=== PATIENT | male | born 1965 | race Two or more races ===

== ENCOUNTER 2018-03-18 04:23 | Emergency (ER) | payer SELFPAY ==
[~2018-03-18] VITALS: Ht 177.8 cm; Wt 88.5 kg
[~2018-03-18 04:23] MED LIST: CYCL1TAB18 PO; ESOM20CA PO; IBUP800T24 PO
[2018-03-18] MEDS ORDERED: MORPHINE SULF INJ 2 MG/ML SYRINGE 1ML IV ONE (06:00)
[2018-03-18 06:06] LABS: Basophils # (auto) 0 uL; Basophils % (auto) 0.4 % (0.0-2.0); Eosinophils # (auto) 0 uL; Eosinophils % (auto) 0.2 % (0.0-7.0); Hematocrit 48.9 % (41.0-53.0); Hemoglobin 16.6 g/dL (13.5-17.5); Lymphocytes # (auto) 2.4 uL; Lymphocytes % (auto) 33.6 % (10.0-50.0); Mean Corpuscular Hemoglobin 30.7 pg (28.0-32.0); Mean Corpuscular Hgb Conc. 33.9 g/dL (32.0-36.0); Mean Corpuscular Volume 90.5 fL (80.0-100.0); Monocytes # (auto) 0.8 uL; Monocytes % (auto) 10.7 % (0.0-12.0); Neutrophils # (auto) 3.9 uL; Neutrophils % (auto) 55.1 % (37.0-80.0); Nucleated Red Blood Cells % 0.1 %; Platelet Count (auto) 169 10^3/uL (140-450); Red Cell Distribution Width 14.4 % (11.8-14.3); White Blood Cell 7.1 10^3/uL (4.4-10.8)
[2018-03-18 06:22] LABS: Calcium 8.3 mg/dL (8.5-10.1); Chloride 107 mmol/L (98-107); Potassium 3.9 mmol/L (3.5-5.1); Sodium 138 mmol/L (136-145)
[2018-03-18 06:25] LABS: Alanine Aminotransferase 39 U/L (16-61); Albumin 3.6 g/dL (3.4-5.0); Anion Gap 7 (5-15); Aspartate Aminotransferase 16 U/L (15-37); BUN/Creatinine Ratio 20.5; Blood Urea Nitrogen 23 mg/dL (7-18); Carbon Dioxide 24 mmol/L (21-32); GFR African American 89 mL/min; GFR Non-African American 73 mL/min; Glucose 115 mg/dL (74-106); Magnesium 2.1 mg/dL (1.6-2.6)
[2018-03-18 06:30] LABS: Alkaline Phosphatase 66 U/L (45-117); Bilirubin, Total 0.4 mg/dL (0.2-1.0); Total Protein 6.8 g/dL (6.4-8.2)
[2018-03-18] MEDS ORDERED: IOHEXOL 300 MG/ML 100ML BOTTLE IJ ONE (06:48)
[2018-03-18] MEDS ORDERED: SODIUM CHLORIDE 0.9% 1,000 ML IV ONE (06:55)
[2018-03-18] MEDS ORDERED: ONDANSETRON HCL 4 MG/2 ML VIAL IV ONE (07:00)
[2018-03-18] MEDS ORDERED: KETOROLAC TROMETH 30 MG/ML 1ML VIAL IV ONE (07:00)
[2018-03-18 10:18] VITALS: BP 111/67
[2018-03-18 10:19] LABS: Urine Bacteria NONE SEEN /hpf (None Seen); Urine Blood Negative /uL (Negative); Urine Specific Gravity 1.032 (1.001-1.035); Urine WBC 1 /hpf (0 - 3)
== END 2018-03-18 12:24 | disposition home or self-care (01) ==
LOC: EDBD 04:23 → ER 04:31
DX: R07.89 Other chest pain (principal); K44.9 Diaphragmatic hernia without obstruction or gangrene; E03.9 Hypothyroidism, unspecified; Z90.89 Acquired absence of other organs
CPT/HCPCS: 36415; 71260; 80053; 81001; 83735; 84443; 84484; 85025; 85652; 93005; 96374; 96375; 99285; J1885; J2405; Q9967

== ENCOUNTER 2023-03-02 08:41 | Inpatient (IN) | payer MEDICAID ==
[2023-02-28 13:37] LABS: Basophils # (auto) 0 10 ^3/uL (0-0.2); Eosinophils # (auto) 0 10 ^3/uL (0-0.8); Eosinophils % (auto) 0.5 % (0.0-7.0); Hematocrit 44.1 % (41.0-53.0); Hemoglobin 14.9 g/dL (13.5-17.5); Lymphocytes # (auto) 1.8 10 ^3/uL (0.4-5.4); Lymphocytes % (auto) 35.7 % (10.0-50.0); Mean Corpuscular Hemoglobin 28.8 pg (28.0-32.0); Mean Corpuscular Hgb Conc. 33.9 g/dL (32.0-36.0); Mean Corpuscular Volume 84.9 fL (80.0-100.0); Monocytes # (auto) 0.7 10 ^3/uL (0-1.3); Monocytes % (auto) 14.7 % (0.0-12.0); Neutrophils # (auto) 2.4 10 ^3/uL (1.6-8.6); Neutrophils % (auto) 48.1 % (37.0-80.0); Nucleated Red Blood Cells % 0.1 %; Red Blood Cells 5.19 10^6/uL (4.5-5.90); Red Cell Distribution Width 16.1 % (11.8-14.3); White Blood Cell 4.9 10^3/uL (4.4-10.8)
[2023-02-28 13:45] LABS: INR 0.98 (0.9-1.15); Partial Thromboplastin Time 24.8 SEC (24.5-34.5); Prothrombin Time 10.3 sec (9.3-11.8)
[2023-02-28 13:56] LABS: Urine Bacteria NONE SEEN /hpf (None Seen); Urine Blood Negative /uL (Negative); Urine Clarity Clear (Clear); Urine Color Yellow (Yellow); Urine Mucus FEW (None Seen); Urine Protein, UAD TRACE (Negative); Urine Specific Gravity 1.027 (1.001-1.035); Urine Urobilinogen Normal (Negative); Urine WBC 1 /hpf (0 - 3); Urine pH 5.5 (5.0-8.0)
[2023-02-28 14:22] LABS: Alanine Aminotransferase 71 U/L (7-40); Alkaline Phosphatase 84 U/L (46-116); Anion Gap 9.4 (5-15); Aspartate Aminotransferase 30 U/L (13-40); BUN/Creatinine Ratio 10.1 (10.0-20.0); Bilirubin, Total 0.5 mg/dL (0.2-1.0); Blood Urea Nitrogen 10 mg/dL (9-23); Calcium 8.9 mg/dL (8.5-10.1); Carbon Dioxide 20.6 mmol/L (20-30); Chloride 110 mmol/L (98-107); Glucose 130 mg/dL (74-106); Sodium 140 mmol/L (136-145); Total Protein 6.2 g/dL (5.7-8.2)
[~2023-03-02] VITALS: Ht 170.2 cm; Wt 91.3 kg
[~2023-03-02 08:41] MED LIST changes: -CYCL1TAB18 PO; -ESOM20CA PO; +IBUP-1456 PO; -IBUP800T24 PO; +ceFAZolin 1GM/50ML 100 ML IV ONE
[2023-03-02] MEDS ORDERED: LIDOCAINE W/ EPINEPHRINE 1% 20ML VIAL ONE (09:12)
[2023-03-02] MEDS ORDERED: BUPIVACAINE 0.25% INJ 50ML VIAL ONE (09:12)
[2023-03-02] MEDS ORDERED: HYDROmorphone HCL 2 MG/ML VL/or syr IV PRN ×3 (09:15→22:00)
[2023-03-02] MEDS ORDERED: METOCLOPRAMIDE HCL 5MG/ml INJ 2ml VIAL IV PRN (09:15)
[2023-03-02] MEDS ORDERED: ACCU-CHEK COMFORT CURVE STRIP VI ONE (09:15)
[2023-03-02] MEDS ORDERED: MORPHINE SULFATE INJ 2 MG/ml SYRG IV PRN (09:15)
[2023-03-02] MEDS ORDERED: MIDAZOLAM HCL 2MG/2ML 2ml VIAL (1mg/ml) ONE (10:55)
[2023-03-02] MEDS ORDERED: fentaNYL CITRATE 100 MCG/2 ML VL ONE (10:55)
[2023-03-02] MEDS ORDERED: DexAMETHasone SOD PHOS 10MG/1ML VIAL INJ ONE (10:55)
[2023-03-02] MEDS ORDERED: ROCURONIUM 10MG/ML 10ML VIAL IV ONE (10:55)
[2023-03-02] MEDS ORDERED: SODIUM CHLORIDE LOCK 10 ML ONE (10:55)
[2023-03-02] MEDS ORDERED: NEOSTIGMINE 1 MG/ML INJ (10mg/10ML VIAL) ONE (10:55)
[2023-03-02] MEDS ORDERED: MEPERIDINE HCL (25 MG/ML) 1ML VIAL ONE (10:55)
[2023-03-02] MEDS ORDERED: ONDANSETRON HCL 4 MG/2 ML VIAL ONE (10:56)
[2023-03-02] MEDS ORDERED: GLYCOPYRROLATE 0.2 MG/ML 1ML VIAL ONE (10:56)
[2023-03-02] MEDS ORDERED: SUGAMMADEX 200mg/2ml Vial (100MG/ML) IV ONE (11:27)
[2023-03-02 11:45] VITALS: O2SAT 100
[2023-03-02] MEDS ORDERED: ONDANSETRON HCL 4 MG/2 ML VIAL IV PRN ×2 (11:45→15:15)
[2023-03-02] MEDS ORDERED: HYDROmorphone HCL 2 MG/ML VL/or syr ONE (12:12)
[2023-03-02] MEDS ORDERED: MEPERIDINE HCL (50 MG/ML) 1 ML VIAL ONE (12:12)
[2023-03-02] MEDS: HYDROmorphone HCL 2 MG/ML VL/or syr IV PRN ×7 (12:14→23:36)
[2023-03-02] MEDS: D5W/SOD CHL 0.45%/KCL 20MEQ 1,000 ML IV SCH ×2 (12:48→20:05)
[2023-03-02] MEDS ORDERED: HYDROmorphone HCL 2 MG/ML VL/or syr IV ONE (13:15)
[2023-03-02] MEDS ORDERED: ONDANSETRON HCL 4 MG/2 ML VIAL IM ONE (13:15)
[2023-03-02] MEDS ORDERED: ceFAZolin 1GM/50ML 50 ML IV SCH ×2 (14:00→19:30)
[2023-03-02] MEDS ORDERED: DOCUSATE SOD 100 MG CAP PO PRN (15:15)
[2023-03-02] MEDS ORDERED: hydrALAZINE HCL 20 MG/ML VL IV PRN (15:30)
[2023-03-02 15:33] LABS: Base Excess -2.1 mmol/L (-2.0-2.0)
[2023-03-02 16:55] VITALS: BP 114/65; PULSE 75; RESP 18; TEMP 97.5; O2SAT 97
[2023-03-02] MEDS: SODIUM CHLORIDE 0.9% 1,000 ML IV SCH ×2 (17:18→23:35)
[2023-03-02 18:00] VITALS: O2SAT 97
[2023-03-02] MEDS ORDERED: ESOM20CA PO (18:23)
[2023-03-02] MEDS ORDERED: HYDR50CA2 PO (18:23)
[2023-03-02 19:24] LABS: Hematocrit 41.6 % (41.0-53.0); Hemoglobin 13.8 g/dL (13.5-17.5)
[2023-03-02] MEDS ORDERED: hydrOXYzine 25 MG TAB or CAP PO PRN (19:30)
[2023-03-02 20:00] VITALS: BP 133/75; PULSE 61; PULSE 67; PULSE 71; RESP 19; RESP 22; TEMP 97.9; O2SAT 96
[2023-03-02 22:00] VITALS: BP 133/75; PULSE 71; RESP 22; TEMP 97.9; O2SAT 96
[2023-03-02] MEDS ORDERED: ACETAMINOPHEN 325 MG TAB PO PRN (22:00)
[2023-03-03] VITALS (7 sets, daily range): BP systolic 106–177; BP diastolic 69–91; PULSE 59–83; RESP 17–20; TEMP 97.6–98.2; O2SAT 93–95
[2023-03-03] MEDS: HYDROmorphone HCL 2 MG/ML VL/or syr IV PRN ×5 (02:52→22:17)
[2023-03-03] MEDS: ceFAZolin 1GM/50ML 50 ML IV SCH ×3 (03:17→20:18)
[2023-03-03] MEDS: D5W/SOD CHL 0.45%/KCL 20MEQ 1,000 ML IV SCH ×4 (04:25→20:15)
[2023-03-03 06:53] LABS: Alanine Aminotransferase 66 U/L (7-40); Anion Gap 5.8 (5-15); BUN/Creatinine Ratio 4.5 (10.0-20.0); Blood Urea Nitrogen 5 mg/dL (9-23); Carbon Dioxide 25.2 mmol/L (20-30); Chloride 105 mmol/L (98-107); Glucose 81 mg/dL (74-106); Potassium 4.4 mmol/L (3.5-5.1); Sodium 136 mmol/L (136-145)
[2023-03-03 06:54] LABS: Aspartate Aminotransferase 34 U/L (13-40)
[2023-03-03 06:56] LABS: Total Protein 6.3 g/dL (5.7-8.2)
[2023-03-03 07:00] LABS: Alkaline Phosphatase 87 U/L (46-116)
[2023-03-03 07:20] LABS: Basophils # (auto) 0 10 ^3/uL (0-0.2); Basophils % (auto) 0.4 % (0.0-2.0); Eosinophils # (auto) 0 10 ^3/uL (0-0.8); Eosinophils % (auto) 0.2 % (0.0-7.0); Hematocrit 44.9 % (41.0-53.0); Hemoglobin 14.6 g/dL (13.5-17.5); Lymphocytes # (auto) 1.7 10 ^3/uL (0.4-5.4); Lymphocytes % (auto) 29.3 % (10.0-50.0); Mean Corpuscular Hemoglobin 28.1 pg (28.0-32.0); Mean Corpuscular Hgb Conc. 32.5 g/dL (32.0-36.0); Mean Corpuscular Volume 86.3 fL (80.0-100.0); Monocytes # (auto) 0.6 10 ^3/uL (0-1.3); Monocytes % (auto) 9.8 % (0.0-12.0); Neutrophils # (auto) 3.6 10 ^3/uL (1.6-8.6); Neutrophils % (auto) 60.3 % (37.0-80.0); Nucleated Red Blood Cells % 0.1 %; White Blood Cell 5.9 10^3/uL (4.4-10.8)
[2023-03-03] MEDS: SODIUM CHLORIDE 0.9% 1,000 ML IV SCH (07:55)
[2023-03-03] MEDS: PANTOPRAZOLE 40 MG/10 ML VIAL INJ IV SCH (09:14)
[2023-03-03] MEDS ORDERED: PANTOPRAZOLE 40 MG/10 ML VIAL INJ IV SCH ×2 (10:00)
[2023-03-04] MEDS: ceFAZolin 1GM/50ML 50 ML IV SCH ×3 (03:44→20:38)
[2023-03-04] MEDS: HYDROmorphone HCL 2 MG/ML VL/or syr IV PRN ×5 (04:04→22:01)
[2023-03-04 05:00] VITALS: BP 130/94; PULSE 66; RESP 18; TEMP 98.5; O2SAT 93
[2023-03-04] MEDS: D5W/SOD CHL 0.45%/KCL 20MEQ 1,000 ML IV SCH ×2 (06:15→16:15)
[2023-03-04 06:39] LABS: Chloride 104 mmol/L (98-107); Potassium 3.8 mmol/L (3.5-5.1); Sodium 137 mmol/L (136-145)
[2023-03-04 06:40] LABS: Anion Gap 7.4 (5-15); Calcium 9.3 mg/dL (8.5-10.1); Carbon Dioxide 25.6 mmol/L (20-30)
[2023-03-04 06:45] LABS: BUN/Creatinine Ratio 6.9 (10.0-20.0); Blood Urea Nitrogen 7 mg/dL (9-23); Glucose 83 mg/dL (74-106)
[2023-03-04 06:51] LABS: Basophils # (auto) 0 10 ^3/uL (0-0.2); Basophils % (auto) 0.4 % (0.0-2.0); Eosinophils # (auto) 0 10 ^3/uL (0-0.8); Eosinophils % (auto) 0.1 % (0.0-7.0); Hematocrit 45.3 % (41.0-53.0); Hemoglobin 15.2 g/dL (13.5-17.5); Lymphocytes # (auto) 1.8 10 ^3/uL (0.4-5.4); Lymphocytes % (auto) 38.3 % (10.0-50.0); Mean Corpuscular Hemoglobin 28.5 pg (28.0-32.0); Mean Corpuscular Hgb Conc. 33.6 g/dL (32.0-36.0); Mean Corpuscular Volume 84.9 fL (80.0-100.0); Monocytes # (auto) 0.5 10 ^3/uL (0-1.3); Neutrophils # (auto) 2.4 10 ^3/uL (1.6-8.6); Neutrophils % (auto) 51.2 % (37.0-80.0); Nucleated Red Blood Cells % 0.4 %; Red Blood Cells 5.33 10^6/uL (4.5-5.90); Red Cell Distribution Width 15.7 % (11.8-14.3); White Blood Cell 4.7 10^3/uL (4.4-10.8)
[2023-03-04 08:39] VITALS: BP 143/96; PULSE 59; RESP 19; TEMP 98.1; O2SAT 96
[2023-03-04] MEDS: PANTOPRAZOLE 40 MG/10 ML VIAL INJ IV SCH (10:59)
[2023-03-04 13:00] VITALS: BP 144/81; PULSE 61; RESP 19; TEMP 98.3; O2SAT 96
[2023-03-04 16:33] VITALS: BP 119/88; PULSE 60; RESP 18; TEMP 98.1; O2SAT 94
[2023-03-04 20:00] VITALS: O2SAT 96
[2023-03-04 22:00] VITALS: BP 131/90; PULSE 66; RESP 18; TEMP 97.7; O2SAT 95
[2023-03-05] MEDS: D5W/SOD CHL 0.45%/KCL 20MEQ 1,000 ML IV SCH ×3 (02:15→22:15)
[2023-03-05] MEDS: HYDROmorphone HCL 2 MG/ML VL/or syr IV PRN ×4 (02:29→18:35)
[2023-03-05] MEDS: ceFAZolin 1GM/50ML 50 ML IV SCH ×3 (04:35→20:05)
[2023-03-05 05:00] VITALS: BP 119/85; PULSE 67; RESP 16; TEMP 97.5; O2SAT 95
[2023-03-05] MEDS: PANTOPRAZOLE 40 MG/10 ML VIAL INJ IV SCH (08:01)
[2023-03-05 09:00] VITALS: BP 132/83; PULSE 67; RESP 20; TEMP 98.2; O2SAT 96
[2023-03-05 13:00] VITALS: BP 145/90; PULSE 79; RESP 22; TEMP 97.9; O2SAT 96
[2023-03-05] MEDS: HYDROcodone-ACET 5/325MG TAB PO PRN ×2 (14:05→21:59)
[2023-03-05 17:00] VITALS: BP 127/84; PULSE 67; RESP 18; TEMP 97.7; O2SAT 100
[2023-03-05 20:00] VITALS: O2SAT 96
[2023-03-06] MEDS: HYDROmorphone HCL 2 MG/ML VL/or syr IV PRN (01:05)
[2023-03-06] MEDS ORDERED: diphenhdrAMINE HCL 25 MG CAP PO PRN (03:45)
[2023-03-06] MEDS: ceFAZolin 1GM/50ML 50 ML IV SCH ×2 (04:03→13:11)
[2023-03-06 05:00] VITALS: BP 123/89; PULSE 63; RESP 18; TEMP 98.2; O2SAT 96
[2023-03-06] MEDS: HYDROcodone-ACET 5/325MG TAB PO PRN ×3 (05:21→18:27)
[2023-03-06] MEDS: D5W/SOD CHL 0.45%/KCL 20MEQ 1,000 ML IV SCH (08:15)
[2023-03-06 09:08] VITALS: BP 130/93; PULSE 69; RESP 22; TEMP 98; O2SAT 100
[2023-03-06] MEDS: PANTOPRAZOLE 40 MG/10 ML VIAL INJ IV SCH (09:28)
[2023-03-06 13:00] VITALS: BP 134/89; PULSE 67; RESP 18; TEMP 97.6; O2SAT 98
[2023-03-06] MEDS ORDERED: LACTULOSE 20Gm/30ML SOLN PO ONE (15:00)
[2023-03-06 17:00] VITALS: BP 141/92; PULSE 65; RESP 16; TEMP 97.3; O2SAT 96
[2023-03-06 20:00] VITALS: O2SAT 97
[2023-03-06 22:00] VITALS: BP 121/79; PULSE 60; RESP 20; TEMP 97.8; O2SAT 93
[2023-03-07] MEDS: HYDROcodone-ACET 5/325MG TAB PO PRN ×2 (00:42→06:42)
[2023-03-07 05:00] VITALS: BP 114/82; PULSE 56; RESP 18; TEMP 97.8; O2SAT 98
[2023-03-07 06:16] LABS: Basophils # (auto) 0 10 ^3/uL (0-0.2); Basophils % (auto) 0.5 % (0.0-2.0); Eosinophils # (auto) 0 10 ^3/uL (0-0.8); Eosinophils % (auto) 0.2 % (0.0-7.0); Hematocrit 48.8 % (41.0-53.0); Hemoglobin 16.5 g/dL (13.5-17.5); Lymphocytes # (auto) 1.9 10 ^3/uL (0.4-5.4); Lymphocytes % (auto) 34.3 % (10.0-50.0); Mean Corpuscular Hemoglobin 28.4 pg (28.0-32.0); Mean Corpuscular Hgb Conc. 33.8 g/dL (32.0-36.0); Mean Corpuscular Volume 84.1 fL (80.0-100.0); Monocytes # (auto) 0.6 10 ^3/uL (0-1.3); Monocytes % (auto) 10.1 % (0.0-12.0); Neutrophils # (auto) 3.1 10 ^3/uL (1.6-8.6); Neutrophils % (auto) 54.9 % (37.0-80.0); Nucleated Red Blood Cells % 0.5 %; Red Cell Distribution Width 15.4 % (11.8-14.3); White Blood Cell 5.6 10^3/uL (4.4-10.8)
[2023-03-07 06:30] LABS: Alanine Aminotransferase 44 U/L (7-40); Alkaline Phosphatase 91 U/L (46-116); Calcium 9.4 mg/dL (8.7-10.4); Carbon Dioxide 26.8 mmol/L (20-30); Chloride 104 mmol/L (98-107)
[2023-03-07 06:31] LABS: Anion Gap 7.2 (5-15); BUN/Creatinine Ratio 8.7 (10.0-20.0); Blood Urea Nitrogen 9 mg/dL (9-23); Glucose 76 mg/dL (74-106); Potassium 4.3 mmol/L (3.5-5.1); Sodium 138 mmol/L (136-145)
[2023-03-07 06:32] LABS: Albumin 4.5 g/dL (3.2-4.8); Aspartate Aminotransferase 30 U/L (13-40); Bilirubin, Total 0.6 mg/dL (0.2-1.0); Total Protein 7.1 g/dL (5.7-8.2)
[2023-03-07 09:00] VITALS: BP 125/85; PULSE 62; RESP 16; TEMP 98.2; O2SAT 98
[2023-03-07 13:00] VITALS: BP 158/79; PULSE 83; RESP 20; TEMP 97.5; O2SAT 99
== END 2023-03-07 14:05 | disposition home or self-care (01) | DRG 228 ==
LOC: SUR 08:41 → TELE 15:18 → TELE-EAST 16:44 → EAST 03-03 18:33
PROVIDERS: ADMIT Nurse Practitioner Family; ATTEND Internal Medicine
PROC: 0WQF0ZZ Repair Abdominal Wall, Open Approach (ICD-10-PCS; principal; 2023-03-02 10:57)
DX: K42.9 Umbilical hernia without obstruction or gangrene (principal); I69.354 Hemiplegia and hemiparesis following cerebral infarction affecting left non-dominant side; F41.9 Anxiety disorder, unspecified; I10 Essential (primary) hypertension; R06.03 Acute respiratory distress; R09.02 Hypoxemia; K21.9 Gastro-esophageal reflux disease without esophagitis; G40.909 Epilepsy, unspecified, not intractable, without status epilepticus; E66.9 Obesity, unspecified; Z86.61 Personal history of infections of the central nervous system; Z68.31 Body mass index [BMI] 31.0-31.9, adult
CPT/HCPCS: 36415; 36600; 71045; 80048; 80053; 81001; 82805; 85014; 85018; 85025; 85610; 85730; 86850; 86900; 86901; 88302; 97110; 97116; 97163; 97530; C9113; G0378; J0690; J1100; J2250; J2405; J3490

== ENCOUNTER 2023-04-11 12:53 | Emergency (ER) | payer MEDICAID ==
[~2023-04-11] VITALS: Ht 170.2 cm; Wt 85.9 kg
[~2023-04-11 12:53] MED LIST changes: +ESOM20CA PO; +HYDR50CA2 PO; -IBUP-1456 PO; -ceFAZolin 1GM/50ML 100 ML IV ONE
[2023-04-11 13:49] LABS: Urine WBC None Seen /hpf (0 - 3)
[2023-04-11 14:06] LABS: Urine Bacteria NONE SEEN /hpf (None Seen); Urine Blood Negative /uL (Negative); Urine Clarity Clear (Clear); Urine Color Yellow (Yellow); Urine Protein, UAD Negative (Negative); Urine Specific Gravity 1.019 (1.001-1.035); Urine Urobilinogen Normal (Negative)
[2023-04-11 15:00] LABS: Basophils # (auto) 0 10 ^3/uL (0-0.2); Basophils % (auto) 0.3 % (0.0-2.0); Eosinophils # (auto) 0 10 ^3/uL (0-0.8); Hematocrit 45.6 % (41.0-53.0); Hemoglobin 15.5 g/dL (13.5-17.5); Lymphocytes # (auto) 1.8 10 ^3/uL (0.4-5.4); Lymphocytes % (auto) 34.7 % (10.0-50.0); Mean Corpuscular Hemoglobin 28.3 pg (28.0-32.0); Mean Corpuscular Hgb Conc. 34.1 g/dL (32.0-36.0); Mean Corpuscular Volume 83.1 fL (80.0-100.0); Monocytes # (auto) 0.6 10 ^3/uL (0-1.3); Neutrophils # (auto) 2.8 10 ^3/uL (1.6-8.6); Nucleated Red Blood Cells % 0.3 %; Red Blood Cells 5.49 10^6/uL (4.5-5.90); Red Cell Distribution Width 14.6 % (11.8-14.3); White Blood Cell 5.2 10^3/uL (4.4-10.8)
[2023-04-11] MEDS ORDERED: SODIUM CHLORIDE 0.9% 1,000 ML IVB ONE (15:00)
[2023-04-11] MEDS ORDERED: KETOROLAC TROMETH 30 MG/ML 1ML VIAL IV ONE (15:00)
[2023-04-11 15:16] LABS: Alanine Aminotransferase 88 U/L (7-40); Albumin 4.5 g/dL (3.2-4.8); Alkaline Phosphatase 84 U/L (46-116); Anion Gap 9 (5-15); Aspartate Aminotransferase 46 U/L (13-40); Bilirubin, Total 0.7 mg/dL (0.2-1.0); Blood Urea Nitrogen 15 mg/dL (9-23); Calcium 9.5 mg/dL (8.5-10.1); Carbon Dioxide 23 mmol/L (20-30); Chloride 106 mmol/L (98-107); Glucose 90 mg/dL (74-106); Potassium 4.2 mmol/L (3.5-5.1); Sodium 138 mmol/L (136-145); Total Protein 6.9 g/dL (5.7-8.2)
[2023-04-11] MEDS ORDERED: KETOROLAC TROMETH 60MG/2ML VIAL ONE (16:10)
[2023-04-11] MEDS ORDERED: TRAM50TA2 PO (16:17)
[2023-04-11] MEDS ORDERED: MORPHINE SULFATE 4 MG/ML SYR/VIAL IV ONE (16:30)
[2023-04-11] MEDS ORDERED: ONDANSETRON HCL 4 MG/2 ML VIAL IV ONE (16:30)
[2023-04-11 18:25] VITALS: BP 133/98; PULSE 72; RESP 18; TEMP 98.7; O2SAT 97
== END 2023-04-11 18:27 | disposition home or self-care (01) ==
LOC: ER 12:53
DX: M79.18 Myalgia, other site (principal); R10.9 Unspecified abdominal pain; Z87.442 Personal history of urinary calculi
CPT/HCPCS: 36415; 74176; 80053; 81001; 83690; 85025; 96361; 96374; 96375; 99285; J1885; J2270; J2405; J7030